=== PATIENT | female | born 1955 | race Caucasian/White ===

== ENCOUNTER 2021-01-06 15:18 | Emergency (ER) | payer MEDICARE, OTHER ==
[~2021-01-06] VITALS: Ht 172.7 cm; Wt 98.0 kg
[2021-01-06] MEDS ORDERED: ASPIRIN EC81 MG PO (19:52)
[2021-01-06] MEDS ORDERED: DECADRON4 MG PO (19:52)
== END 2021-01-06 20:10 | disposition home or self-care (01) ==
LOC: ER1 15:18
DX: Z23 Encounter for immunization (principal); U07.1 COVID-19; E11.9 Type 2 diabetes mellitus without complications; I10 Essential (primary) hypertension; Z88.2 Allergy status to sulfonamides
CPT/HCPCS: 71045; 99283; M0239

== ENCOUNTER → 2021-04-13 | Outpatient (CLI) | payer MEDICARE, OTHER ==
[~2021-04-13] MED LIST: ASPIRIN EC81 MG PO; DECADRON4 MG PO
== END ==
LOC: ECHO 04-12 09:00
DX: I49.9 Cardiac arrhythmia, unspecified (principal); R60.9 Edema, unspecified; R06.02 Shortness of breath; I07.1 Rheumatic tricuspid insufficiency; I70.0 Atherosclerosis of aorta; Z86.16 Personal history of COVID-19
CPT/HCPCS: ECHO; 93306

== ENCOUNTER → 2021-06-08 | Outpatient (CLI) | payer MEDICARE, OTHER | LOC: MAMO 09:50 | DX: Z12.31 Encounter for screening mammogram for malignant neoplasm of breast (principal) | CPT/HCPCS: 77063; 77067 ==

== ENCOUNTER → 2021-08-18 | Outpatient (CLI) | payer MEDICARE, OTHER | LOC: RAD 16:14 | DX: R06.02 Shortness of breath (principal) | CPT/HCPCS: 71046 ==

== ENCOUNTER → 2022-02-18 | Outpatient (CLI) | payer MEDICARE, OTHER | LOC: KOH-I 14:37 | DX: M54.30 Sciatica, unspecified side (principal); M47.816 Spondylosis without myelopathy or radiculopathy, lumbar region | CPT/HCPCS: 72110 ==

== ENCOUNTER → 2022-05-31 | Outpatient (CLI) | payer MEDICARE, OTHER | LOC: EROP 11:46 | DX: U07.1 COVID-19 (principal) | CPT/HCPCS: M0222; Q0222 ==